=== PATIENT | female | born 1960 | race Caucasian/White ===

== ENCOUNTER 2017-01-17 09:03 | Observation (INO) | payer OTHER ==
[2017-01-17] MEDS ORDERED: ceFAZolin 2 GM/DEXTROSE 100 ML IV ONE (09:28)
[2017-01-17] MEDS ORDERED: VANCOMYCIN HCL/NORMAL SALINE 250 ML IV ONE (09:28)
[2017-01-17] MEDS ORDERED: NS 1,000 ML IV ONE (09:47)
[2017-01-17] MEDS ORDERED: CLINDAMYCIN 600 MG/DEXTROSE 50 ML IV ONE (09:47)
--- NOTE | 2017-01-17 09:53 | EDPHY ---
H & P Stated Complaint: Bit by jocelynn's dog on Sat;started antibx but swelling more Source: Patient Exam Limitations: No limitations - Personal History Current Tetanus Diphtheria and Acellular Pertussis (TDAP): Yes Tetanus Vaccine Date: 2014 - Medical/Surgical History Other PMH: depression. abnl LFTs. lumbar disc degeneration w/sciatica - Social History Smoking Status: Never smoked Time Seen by Provider: 01/17/17 09:50 HPI/ROS: HPI: This is a 56-year-old female who presents with Chief Complaint:Bit by jocelynn's dog on Sat;started antibx but swelling more Location: Left hand, wrist, forearm Quality: Redness Duration: 3 days Signs and Symptoms: No bleeding, no radiation, no numbness, no weakness, no tingling, + decreased range of motion, + swelling, + pain Timing: Worsening Severity: Moderate Context: Patient reports that she was bit by a neighbor's dog who is up-to- date on his rabies vaccinations on Tuesday. She was seen at the urgent care and started on Bactrim that she was extremely rec reluctant to start Augmentin due to her father having hepatitis from it? She took the Bactrim Tuesday and Tuesday and noted the redness and swelling worsening so she went back to urgent care and started Augmentin. She has been on antibiotics for a good 48 hours and the redness, swelling or worsening with decreased range of motion. Patient is extremely concerned and tearful. Last tetanus is up-to-date. She denies any fever, paresthesias. Modifying Factors: See above Comment: ROS: see HPI Constitutional: No fever, no chills, no weight loss Eyes: No blurred vision Respiratory: No shortness of breath, no cough Cardiovascular: No chest pain Gastrointestinal: No nausea, no vomiting no diarrhea Genitourinary: No dysuria Extremities: No myalgias Neurologic: No weakness, no numbness Skin: No rashes Hematologic: No bruising, no bleeding MEDICAL/SURGICAL/SOCIAL HISTORY: Medical history: depression, abnl LFTs, lumbar disc degeneration w/sciatica Surgical history: Denies Social history: employed. CONSTITUTIONAL: awake and alert, no obvious distress HEENT: Atraumatic and normocephalic, PERRL, EOMI. Tympanic membranes clear. Oropharynx clear, no exudate and moist pink mucosa. Airway patent. No lymphadenopathy. No meningismus. Cardiovascular: Normal S1/S2, regular rate, regular rhythm, without murmur rub or gallop. PULMONARY/CHEST: Symmetrical and nontender. Clear to auscultation bilaterally. Good air movement. No accessory muscle usage. ABDOMEN: Soft, nondistended, nontender, no rebound, no guarding, no peritoneal signs, no masses or organomegaly. No CVAT. EXTREMITIES: 2/2 radial pulses, left hand: Sutures in place at dog bite with minimal erythema/drainage. There is moderate surrounding swelling, erythema going up into her mid forearm. She also has the bite between her 2nd 3rd digit that was superficial in nature with no surrounding erythema/drainage. All 5 DIP /PIP extension and flexion intact. strength 5/5, no deformities, no clubbing, no cyanosis or edema. NEUROLOGICAL: no focal neuro deficits. GCS 15. SKIN: Warm and dry, no erythema. no rash. Good capillary refill. (Sharri Márquez) Constitutional: Initial Vital Signs Temperature (C) 36.4 C 01/17/17 09:05 Heart Rate 84 01/17/17 09:05 Respiratory Rate 18 01/17/17 09:05 Blood Pressure 117/72 01/17/17 09:05 O2 Sat (%) 97 01/17/17 09:05 O2 Delivery Mode Room Air Allergies/Adverse Reactions: No Known Allergies Allergy (Unverified 01/17/17 09:14) Home Medications: Medication Instructions Recorded Albuterol Sulfate [Ventolin Hfa] 1 - 2 puffs IH Q4HRS PRN 01/17/17 Amoxicillin/Clavulanate Pot 875 mg PO BID 01/17/17 [Augmentin 875 MG TAB (*)] Cholecalciferol Vit D3 [Vitamin D3 1,000 units PO DAILY 01/17/17 (*)] FLUoxetine [Prozac 10 MG (*)] 10 mg PO DAILY 01/17/17 [place]/Supplements -Info Only 1 ea PO DAILY 01/17/17 [place]-3 Fatty Acids [Fish Oil 1000 2,000 mg PO DAILY 01/17/17 mg (*)] Ibuprofen [Motrin (*)] 400 mg PO Q6HRS PRN tab 01/18/17 Medical Decision Making ED Course/Re-evaluation: Labs, Blood culture, IV antibiotics, left wrist x-ray ordered Tetanus up-to-date Patient has failed appropriate outpatient antibiotics times 48 hours with worsening of cellulitis. She will be need to be admitted to the hospital for IV antibiotics. Given IV clindamycin X-ray reviewed via PACs and shows no fracture, osteomyelitis-soft tissue swelling noted over the dorsal and ulnar aspects of the wrist and forearm. 1100: ED decision to consult for admission. Spoke with hospitalist [employer]TE[employer] MANAGER, Nathalie, who kindly agrees to admit patient for observation for IV antibiotics as failed outpatient therapy to Dr. Fraser. Nathalie reports that she will consult Infectious Disease as they are currently near her. (Sharri Márquez) The patient was evaluated and managed by the physician certified anesthesiologist assistant. I have reviewed this chart and I agree with the findings and plan of care as documented , as indicated by my signature. I am the secondary supervising physician. ( Siobhan Jimenez) Differential Diagnosis: Differential diagnosis includes but is not limited to tenosynovitis, cellulitis , abscess. (Sharri Márquez) - Data Points Laboratory Results: Laboratory Results 01/17/17 10:52 01/17/17 10:52 Medications Given: Discontinued Medications Cholecalciferol (Vitamin D) 1,000 units PO DAILY LEANN Stop: 07/17/17 08:59 Last Admin: 01/18/17 09:59 Dose: 1,000 units Fluoxetine HCl (Prozac) 10 mg PO DAILY LEANN Stop: 07/17/17 08:59 Last Admin: 01/18/17 09:59 Dose: 10 mg Clindamycin Phosphate/Dextrose (Cleocin 600 Mg (Premix)) 50 mls @ 100 mls/hr IV EDNOW ONE PRN Reason: Protocol Stop: 01/17/17 10:16 Last Admin: 01/17/17 11:04 Dose: 50 mls Sodium Chloride (Ns) 1,000 mls @ 0 mls/hr IV EDNOW ONE; Wide Open PRN Reason: Protocol Stop: 01/17/17 09:48 Last Admin: 01/17/17 11:05 Dose: 1,000 mls Ampicillin Sodium/Sulbactam (Sodium 3 gm/ Sodium Chloride) 100 mls @ 200 mls/ hr IV Q6HRS LEANN PRN Reason: Protocol Stop: 02/16/17 17:59 Last Admin: 11/14/17 12:06 Dose: 100 mls Ampicillin Sodium/Sulbactam (Sodium 3 gm/ Sodium Chloride) 100 mls @ 200 mls/ hr IV ONCE ONE Stop: 01/17/17 13:44 Last Admin: 01/17/17 14:12 Dose: 100 mls Ibuprofen (Motrin) 400 mg PO Q6HRS PRN PRN Reason: Pain, Inflammatory Stop: 07/16/17 15:15 Last Admin: 01/18/17 00:11 Dose: 200 mg [id number] Ethyl Esters (Fish Oil) 2,000 mg PO DAILY LEANN Stop: 07/17/17 08:59 Last Admin: 01/18/17 09:59 Dose: 2,000 mg Departure - Departure Disposition: [facility] Clinical Impression: Cellulitis of left hand excluding fingers and thumb Dog bite of left forearm with infection Qualifiers: Encounter type: subsequent encounter Qualified Code(s): S51.852D - Open bite of left forearm, subsequent encounter Condition: Good
[2017-01-17 11:01] LABS: % IMMATURE GRANULYOCYTES 0.2 % (0.0-1.1); ABSOLUTE IMMATURE GRANULOCYTES 0.02 10^3/uL (0.00-0.10); ADD DIFF? NO; ADD MORPH? NO; ADD SCAN? NO; ATYPICAL LYMPHOCYTE FLAG 0 (0-99); FRAGMENT RBC FLAG 40 (0-99); HEMATOCRIT 41.6 % (38.0-47.0); HEMOGLOBIN 14.9 g/dL (12.6-16.3); LEFT SHIFT FLG 0 (0-99); LIPEMIA HEMOLYSIS FLAG 90 (0-99); MEAN CELL HEMOGLOBIN 33.4 pg (27.9-34.1); MEAN CELL HEMOGLOBIN CONCENTR. 35.8 g/dL (32.4-36.7); MEAN CELL VOLUME 93.3 fL (81.5-99.8); MEAN PLATELET VOLUME 9.5 fL (8.7-11.7); PLATELET CLUMPS FLAG 30 (0-99); PLATELET COUNT 224 10^3/uL (150-400); RED BLOOD CELL COUNT 4.46 10^6/uL (4.18-5.33); RED CELL DISTRIBUTION WIDTH 12.3 % (11.5-15.2)
[2017-01-17 11:15] LABS: ANION GAP 15 mEq/L (8-16); CALCIUM 9.9 mg/dL (8.5-10.4); CARBON DIOXIDE 18 mEq/l (22-31); CHLORIDE 106 mEq/L (97-110); CREATININE 0.9 mg/dL (0.6-1.0); GLOMERULAR FILTRATION RATE > 60; GLUCOSE 108 mg/dL (70-100); SODIUM 139 mEq/L (134-144)
[2017-01-17 11:27] LABS: SEDIMENTATION RATE 9 MM/HR (0-30)
[2017-01-17] MEDS ORDERED: ALBUTEROL INH PREPACK MDI TAKEHOME PRN (12:06)
[2017-01-17] MEDS ORDERED: ALBUTEROL 200 PUFFS/18 GM MDI IH PRN (12:13)
[2017-01-17] MEDS ORDERED: ACETAMINOPHEN 325 MG TAB PO PRN (13:02)
[2017-01-17] MEDS ORDERED: AMPICILLIN/SULBACTAM 3 GM in NS 100 ML IV ONE (13:15)
--- NOTE | 2017-01-17 13:56 | GHP ---
[f rep st] HISTORY AND PHYSICAL DATE OF ADMISSION: 01/17/2017 CHIEF COMPLAINT: Dog bite to left hand with associated cellulitis. HISTORY OF PRESENT ILLNESS: The patient is a 56-year-old female who does not have any significant past medical history who was recently bitten by her neighbor's dog on Tuesday afternoon. Her dog got in a fight with her neighbor' s dog. She tried to break it up. She subsequently sustained a bite and a scratch and went to urgent care for further evaluation. At that time, she was started on Bactrim. She was very reluctant to start Augmentin because she said when her father was on this medication it resulted in him getting hepatitis. She took the Bactrim Tuesday and Tuesday for a total of 4 doses. She noted the redness and swelling was worsening. She returned to urgent care on Tuesday, and at that time, was started on Augmentin. She came to [facility] today out of concern that the swelling was worsening. She denies any worsening pain. She has had no fever. She describes some possible chills, but she is very nervous and concerned about the infection in her hand. She also notes that she has had chronic abnormal liver function test and was concerned about taking antibiotics in regard to this. Of noted, she had her tetanus shot in 2014. PAST MEDICAL HISTORY: 1. Depression. 2. Lumbar disk degeneration with sciatica. 3. Abnormal liver function tests. PAST SURGICAL HISTORY: 1. . 2. Tonsillectomy before age 5. 3. Two eye surgeries before age 5. SOCIAL HISTORY: She does not smoke. She is . Her from pneumococcal meningitis in 2004. She has 1 teenage daughter. She does not drink alcohol. 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 FAMILY HISTORY: Her parents are . Her mother from old age at age 82. Her father at age 81 from a brain bleed. ALLERGIES: No known allergies. HOME MEDICATIONS: Vitamin D 1000 units daily, fish oil 2000 mg daily, albuterol 1-2 puffs q.4 hours p.r.n., supplements 1 tab daily, Prozac 10 mg daily. REVIEW OF SYSTEMS: A 10-point review of system was performed, was negative other than pertinent positives in HPI and Past Medical History. PHYSICAL EXAMINATION: GENERAL: The patient is a 56-year-old female who does not appear to be in any acute distress, but is very anxious about being in the hospital. VITAL SIGNS: Blood pressure is 127/84, heart rate is 84, respiratory rate is 18, O2 saturation on room air 98%, temperature is 36.8 Celsius. EYES: Pupils are equal reactive. EOMs are intact. No conjunctival injection noted. ENT: Normal ears. Hearing intact. Normal lips, teeth. Oral airways moist. NECK: Trachea is midline. CARDIOVASCULAR: She is in a regular rate and rhythm. No murmurs, rubs, or gallops noted. CHEST/LUNGS: Normal respiratory effort. Clear without wheezing, rales, rhonchi. ABDOMEN: Soft, nontender. LYMPHS: She has no cervical or axillary adenopathy. SKIN: Her left hand has a puncture between the ring finger and middle finger. She has stitches approximately on the left wrist area. The left hand is swollen with very minimal erythema. The swelling does extend to above the midforearm area. On the right hand, she has a scratch on the palmar area toward the thumb area as well as a bite hao to her right index finger. MUSCULOSKELETAL: She has normal gait, strength. PSYCHIATRIC: She is alert and oriented. Has normal judgment and insight, but is very anxious. RADIOLOGIC DATA: A wrist x-ray was performed that showed some soft tissue swelling over the dorsal ulnar aspect of the distal forearm and wrist. There is no acute fracture. LABORATORY DATA: A CBC shows a white blood cell count of 10.12, hemoglobin is 14.9, hematocrit of 41.6, platelet count of 224, lymphocytes 12.9, neutrophils 75.2. Chemistry: Sodium is 139, potassium 4, chloride of 106, CO2 of 18, creatinine 0.9, glucose of 108. ASSESSMENT AND PLAN: 1. Left hand cellulitis secondary to a dog bite. The patient is very concerned about her elevated liver enzymes. Will place her on Unasyn. This is renally cleared. Will check her liver enzymes today and tomorrow. If she continues to have swelling, could consider further imaging. It does not appear to have any bone or joint involvement. 2. Depression. Resumed Prozac. 3. History of elevated liver enzymes. Recheck in the morning. 4. Length of stay: I suspect she will only need a 1 midnight stay for treatment of this. 5. Deep venous thrombosis prophylaxis, low risk. Will encourage ambulation. 6. Code status: Full. /[id number]/MODL MTDD
[2017-01-17] MEDS ORDERED: IBUPROFEN 200 MG TAB PO PRN (15:16)
--- NOTE | 2017-01-17 16:49 | ASMTCMCOM ---
CM Note CM Note Notes: Chart reviewed, No needs identified. Anticipate dc to home independent when medically cleared, CM availabe should needs arise. Date Signed: 01/17/2017 04:48 PM Electronically Signed By:Елена Carrasco RN
[2017-01-17] MEDS: AMPICILLIN/SULBACTAM 3 GM in NS 100 ML IV SCH (18:20)
[2017-01-17 21:47] LABS: ALBUMIN 4.5 g/dL (3.5-5.0); BILIRUBIN-CONJUGATED 0.3 mg/dL (0.0-0.5); BILIRUBIN-UNCONJUGATED 0.7 mg/dL (0.0-1.1); TOTAL PROTEIN 7.1 g/dL (6.3-8.2)
--- NOTE | 2017-01-17 21:52 | HOSPPROG ---
Hospitalist Progress Note Assessment/Plan: patient concerned about swelling in arm, although notes it may be a bit improved exam w/out signs of tenosynovitis continue unasyn Objective: Vital Signs Temp Pulse Resp BP Pulse Ox 37.3 C 90 19 112/60 95 01/17/17 20:00 01/17/17 20:00 01/17/17 20:00 01/17/17 20:00 01/17/17 20:00 01/16/17 01/17/17 01/18/17 05:59 05:59 05:59 Intake Total 600 Balance 600 ICD10 Worksheet Patient Problems: Problems Problem Status Onset Cellulitis of left hand excluding fingers and thumb Acute Dog bite of left forearm with infection Acute
[2017-01-18] MEDS: AMPICILLIN/SULBACTAM 3 GM in NS 100 ML IV SCH ×3 (00:02→12:06)
[2017-01-18 05:24] LABS: % IMMATURE GRANULYOCYTES 0.2 % (0.0-1.1); ABSOLUTE IMMATURE GRANULOCYTES 0.01 10^3/uL (0.00-0.10); ADD DIFF? NO; ADD MORPH? NO; ADD SCAN? NO; ATYPICAL LYMPHOCYTE FLAG 0 (0-99); FRAGMENT RBC FLAG 0 (0-99); HEMATOCRIT 38.5 % (38.0-47.0); HEMOGLOBIN 13.5 g/dL (12.6-16.3); LEFT SHIFT FLG 0 (0-99); LIPEMIA HEMOLYSIS FLAG 90 (0-99); MEAN CELL HEMOGLOBIN 33.2 pg (27.9-34.1); MEAN CELL HEMOGLOBIN CONCENTR. 35.1 g/dL (32.4-36.7); MEAN CELL VOLUME 94.6 fL (81.5-99.8); MEAN PLATELET VOLUME 9.3 fL (8.7-11.7); PLATELET CLUMPS FLAG 20 (0-99); PLATELET COUNT 186 10^3/uL (150-400); RED BLOOD CELL COUNT 4.07 10^6/uL (4.18-5.33); RED CELL DISTRIBUTION WIDTH 12.3 % (11.5-15.2)
[2017-01-18 05:41] LABS: ALANINE AMINOTRANSFERASE 70 IU/L (9-52); ALBUMIN 3.6 g/dL (3.5-5.0); ALKALINE PHOSPHATASE 60 IU/L (38-126); ANION GAP 9 mEq/L (8-16); ASPARTATE AMINOTRANSFERASE 38 IU/L (14-46); BILIRUBIN,TOTAL 0.8 mg/dL (0.1-1.4); CALCIUM 9.3 mg/dL (8.5-10.4); CARBON DIOXIDE 21 mEq/l (22-31); CHLORIDE 109 mEq/L (97-110); CREATININE 0.8 mg/dL (0.6-1.0); GLOMERULAR FILTRATION RATE > 60; GLUCOSE 91 mg/dL (70-100); SODIUM 139 mEq/L (134-144); TOTAL PROTEIN 5.8 g/dL (6.3-8.2)
[2017-01-18 08:22] VITALS: RESP 16
[2017-01-18] MEDS ORDERED: CHOLECALCIFEROL VIT D3 1,000 UNITS TAB PO SCH (09:00)
[2017-01-18] MEDS ORDERED: Herbals/Supplements -Info Only PO SCH (09:00)
[2017-01-18] MEDS ORDERED: OMEGA-3 FATTY ACIDS 1,000 MG CAP PO SCH (09:00)
[2017-01-18] MEDS ORDERED: FLUoxetine 10 MG CAP PO SCH (09:00)
[2017-01-18 12:16] VITALS: BP 102/71; PULSE 61; TEMP 98.4; O2SAT 94
--- NOTE | 2017-01-18 15:06 | ASDISCHSUM ---
Discharge Information Plan Status:Home with No Needs Medically Cleared to Leave: Discharge Date:01/18/2017 01:24 PM CM D/C Disposition:Home, Routine, Self-Care ADT D/C Disposition:Home, Routine, Self-Care Projected Discharge Date:01/18/2017 01:24 PM Transportation at D/C: Discharge Delay Reason: Follow-Up Date:01/18/2017 01:24 PM Discharge Slot: Final Diagnosis: Placement Information Patient Contact Information Contact Name:DALI Relationship: Address:[address] Work Phone: City:[facility] Phone: [facility]/Zip Code:[place] [address] Email: Financial Information Financial Class:HMO and PPO Plans Primary Plan Desc:ERICK PPO [employer] Primary Plan Number:[id number] Secondary Plan Desc: Secondary Plan Number: Assessment Information LACE LACE Length of stay for Answers: Less than 1 day current admission Acuity / Level of Care Answers: Was the patient admitted to hospital via the emergency department? Yes: Emergency dept visits in Answers: 0 last 6 months Score: 3 Date Signed: 01/17/2017 04:46 PM Electronically Signed By:Елена Carrasco RN [facility] CM Progress Note CM Note CM Note Notes: Chart reviewed, No needs identified. Anticipate dc to home independent when medically cleared, CM availabe should needs arise. Date Signed: 01/17/2017 04:48 PM Electronically Signed By:Елена Carrasco RN [facility] CM Progress Note CM Note CM Note Notes: Pt medically stable for d/c, no CM d/c needs identified. Date Signed: 01/18/2017 03:06 PM Electronically Signed By:LYNDA Villavicencio Intervention Information
--- NOTE | 2017-01-19 18:57 | GDS ---
[f rep st] DISCHARGE SUMMARY SERVICE: [facility] hospitalist. CONSULTS: None. PROCEDURE: Wrist x-ray (soft tissue swelling over the dorsal ulnar aspects of distal forearm and wrist. No fracture or foreign body). HISTORY AND PHYSICAL: Please see previously dictated note by Xena Beck NP. ADMISSION DIAGNOSES: 1. Left hand cellulitis secondary to a dog bite. 2. Elevated liver enzymes. DISCHARGE DIAGNOSES: 1. Left hand cellulitis secondary to a dog bite. 2. Elevated liver enzymes. HOSPITAL COURSE: 1. Patient was initially admitted because of concern about worsening pain and infection around the site of a dog bite. She was initially seen at Urgent Care on Tuesday after the bite occurred and had sutures placed in the wound. She was started on Bactrim and Augmentin, but chose to only take the Bactrim initially and then a dose of Augmentin Tuesday evening. When she woke up on Tuesday she felt it was much worse and came into the emergency department for evaluation. She had slightly elevated white blood cell count of 10, and noted soft tissue swelling, so she was given IV antibiotics, admitted for observation. She received Unasyn 3 g and had a blood culture done, which was pending at time of discharge. She remained afebrile throughout her stay and wound was much less swollen and decreased erythema on the day of discharge. She is being discharged home and should continue with local wound care, restart Augmentin, follow up with her primary care provider within a few days. Of note , she is planning to go out of town on Tuesday to [place] and was very concerned about wound care/sutures and followup. Concerns discussed with her. If at any time while she was away she had concerns, she was instructed to go to a local emergency department. 2. Elevated liver enzymes. She has chronic history of mildly elevated liver enzymes and has had evaluation with her primary care provider. Initially, her AST was 64, but it came down to 38 on the day of discharge. Initially, her ALT was 83, but came down 70 on the day of discharge. No further evaluation of this was done in the hospital. Defer further followup and evaluation to her primary care provider as needed. DISCHARGE MEDICATIONS: Prozac 10 mg once a day, vitamin D daily, [place] 3s daily , and has been instructed to restart Augmentin 875/125, one tablet twice a day ( given 1 week supply). She should follow up with her primary care provider, Dr. Bere Randolph, within 1-2 days and suture removal as previously advised /[id number]/MODL MTDD
== END 2017-01-18 13:24 | disposition home or self-care (01) ==
LOC: F3N 11:49
PROVIDERS: ADMIT Internal Medicine; ATTEND Family Medicine
DX: S60.572A Other superficial bite of hand of left hand, initial encounter (principal); T79.8XXA Other early complications of trauma, initial encounter; L03.114 Cellulitis of left upper limb; W54.0XXA Bitten by dog, initial encounter; R74.8 Abnormal levels of other serum enzymes; F32.9 Major depressive disorder, single episode, unspecified; M51.16 Intervertebral disc disorders with radiculopathy, lumbar region
CPT/HCPCS: 73110; G0378; J0295

== ENCOUNTER 2017-05-06 21:43 | Emergency (ER) | payer OTHER ==
[2017-05-06 21:54] VITALS: BP 127/83; PULSE 88; RESP 16; TEMP 97.5; O2SAT 98
--- NOTE | 2017-05-06 22:22 | EDPHY ---
HPI/HX/ROS/PE/MDM Narrative: CHIEF COMPLAINT: "I think I have a UTI" HPI: The patient is a 56 y/o female with a history of UTIs arriving with her friend complaining of dysuria onset Tuesday, 5 days ago, and worsening since then. She has associated polyuria and intermittent suprapubic pain. She denies flank pain, fever, vomiting. Her symptoms feel exactly the same as prior UTIs. She had some Bactrim from February that she took with no improvement in symptoms. She denies other complaints. REVIEW OF SYSTEMS: Aside from elements discussed in the HPI, a comprehensive 10-point review of systems was reviewed and is negative. PMH: Depression, lumbar disc degeneration with sciatica, abnormal LFTs, left hand cellulitis secondary to dog bite, , tonsillectomy, eye surgeries, c-diff following antibiotic use for cellulitis. SOCIAL HISTORY: Nonsmoker. . microbiology technician. Prior medical records reviewed including admission 01/17/17 for cellulitis. PHYSICAL EXAM: General:Patient is alert, in no acute distress. ENT:Eyes are normal to inspection. ENT inspection normal. Neck: Normal inspection. Full range of motion. Respiratory:No respiratory distress. Breath sounds normal bilaterally. Cardiovascular: Regular rate and rhythm. Strong peripheral pulses. Normal cap refill. Abdomen:The abdomen is nontender to palpation. There are no peritoneal signs. Back: Normal to inspection. No CVA tenderness to palpation. Skin: Normal color. No rash. Warm and dry. Extremities: Normal appearance. Full range of motion. Neuro: Oriented x3. Normal motor function. Normal sensory function. ED Course: This is a 56 y/o female with a history of frequent UTIs who presents with a 5- day history of dysuria and polyuria. Her exam is benign. UA indicates UTI. Reviewed prior urine cultures, which show patient is sensitive to Macrobid. She will receive one dose 100mg PO Macrobid here and then be discharged with Macrobid script and standard UTI care and follow up instructions. Return precautions discussed. She is comfortable with this plan. - Data Points Laboratory Results: 05/06/17 22:02 Urine Color PALE YELLOW Urine Appearance HAZY Urine pH 7.0 (5.0-7.5) Ur Specific [place] 1.001 L (1.002-1.030) Urine Protein NEGATIVE (NEGATIVE) Urine Ketones NEGATIVE (NEGATIVE) Urine Blood 3+ H (NEGATIVE) Urine Nitrate NEGATIVE (NEGATIVE) Urine Bilirubin NEGATIVE (NEGATIVE) Urine Urobilinogen NEGATIVE EU EU (0.2-1.0) Ur Leukocyte Esterase 3+ H (NEGATIVE) Urine RBC 1-3 /hpf /hpf (0-3) Urine WBC 50-182 /hpf H /hpf (0-3) Ur Epithelial Cells TRACE /lpf /lpf (NONE-1+) Urine Bacteria 2+ /hpf H /hpf (NONE SEEN) Urine Mucus TRACE /lpf /lpf (NONE-1+) Urine Glucose NEGATIVE (NEGATIVE) General Time Seen by Provider: 05/06/17 22:10 Initial Vital Signs: Initial Vital Signs Temperature (C) 36.4 C 05/06/17 21:50 Heart Rate 88 05/06/17 21:50 Respiratory Rate 16 05/06/17 21:50 Blood Pressure 127/83 H 05/06/17 21:50 O2 Sat (%) 98 05/06/17 21:50 O2 Delivery Mode Room Air Allergies/Adverse Reactions: No Known Allergies Allergy (Unverified 01/17/17 09:14) Home Medications: Medication Instructions Recorded FLUoxetine [Prozac 10 MG (*)] 10 mg PO DAILY 01/17/17 Nitrofurantoin Monohyd/M-Cryst 100 mg PO BID #10 capsule 05/06/17 [Macrobid 100 mg Capsule] Departure - Departure Disposition: Home, Routine, Self-Care Clinical Impression: UTI (urinary tract infection) Qualifiers: Urinary tract infection type: acute cystitis Hematuria presence: without hematuria Qualified Code(s): N30.00 - Acute cystitis without hematuria Condition: Good Instructions: Phenazopyridine (By mouth), Nitrofurantoin Combination (By mouth) , Urinary Tract Infection in Women (DC) Additional Instructions: 1. Take Macrobid as prescribed for UTI. Be sure to complete the entire prescription even if you feel better. 2. Use Tylenol and ibuprofen as directed on the packaging as needed for pain or fever over the next few days. 3. Use Phenazopyridine, available [id number], as directed on the packaging for urinary pain over the next few days. 4. Follow up with your primary care provider for unimproved symptoms by Tuesday. 5. Return to the ED for worsening of condition. Referrals: Bere Randolph MD [Primary Care Provider] - As per Instructions Prescriptions: Nitrofurantoin Monohyd/M-Cryst [Macrobid 100 mg Capsule] 100 mg PO BID #10 capsule Report Scribed for: Hira Marrero Report Scribed by: Teresa Keating Date of Report: 05/06/17 Time of Report: 22:16 Physician Review and Approval Statement: Portions of this note were transcribed by an ED scribe. I personally performed the history, physical exam, and medical decision making; and confirm the accuracy of the information in the transcribed note.
[2017-05-06] MEDS ORDERED: NITROFURANTOIN MACROBID 100 MG CAP PO ONE (22:27)
== END 2017-05-06 22:46 | disposition home or self-care (01) ==
DX: N30.00 Acute cystitis without hematuria (principal); B96.89 Other specified bacterial agents as the cause of diseases classified elsewhere

== ENCOUNTER → 2018-02-15 | Outpatient (CLI) | payer OTHER | LOC: FIMAGING 09:31 | PROVIDERS: ATTEND Family Medicine | DX: Z12.31 Encounter for screening mammogram for malignant neoplasm of breast (principal); Z13.820 Encounter for screening for osteoporosis; M85.89 Other specified disorders of bone density and structure, multiple sites ==